=== PATIENT | female | born 1955 | race Caucasian/White ===

== ENCOUNTER 2022-08-10 14:10 | Emergency (ER) | payer MEDICARE, OTHER ==
[~2022-08-10] VITALS: Ht 157.5 cm; Wt 54.5 kg
[2022-08-10] MEDS ORDERED: AMLO2.5T29 PO (14:21)
[2022-08-10] MEDS ORDERED: OXYB5TAB20 PO (14:21)
[2022-08-10] MEDS ORDERED: CALC-1038 PO (14:21)
[2022-08-10] MEDS ORDERED: LISI2.5T13 PO (14:21)
[2022-08-10] MEDS ORDERED: GABA-1181 PO (14:21)
[2022-08-10] MEDS ORDERED: ALBU8HFA IH (14:21)
[2022-08-10] MEDS ORDERED: NAPR-1197 PO (14:21)
[2022-08-10] MEDS ORDERED: HYDROCODONE/ACETAMINOPHEN 5-325 MG TABLET PO ONE (17:00)
[2022-08-10] MEDS ORDERED: LIDOCAINE 5% TRANSDERMAL PATCH TD ONE (17:00)
[2022-08-10 18:50] VITALS: BP 142/89
== END 2022-08-10 21:42 | disposition left against medical advice (07) ==
LOC: EMS 14:19
DX: S92.355A Nondisplaced fracture of fifth metatarsal bone, left foot, initial encounter for closed fracture (principal); J44.9 Chronic obstructive pulmonary disease, unspecified; M25.512 Pain in left shoulder; F17.210 Nicotine dependence, cigarettes, uncomplicated; Z88.0 Allergy status to penicillin; X50.1XXA Overexertion from prolonged static or awkward postures, initial encounter; Y93.31 Activity, mountain climbing, rock climbing and wall climbing; Y92.828 Other wilderness area as the place of occurrence of the external cause; Y99.8 Other external cause status
CPT/HCPCS: 99284